=== PATIENT | female | born 1940 | race Caucasian/White ===

== ENCOUNTER → 2016-12-12 | Outpatient (CLI) | payer MEDICARE, BC ==
[2016-01-27 09:21] VITALS: BP 114/66
[~2016-12-12] MED LIST: ACET325T16 PO; ASPI325T11 PO; ASPI81TA2 PO; ATOR10TA60 PO; CALC500T27 PO; ERGO500012 PO; FAMO20TA5 PO; FURO20TA3 PO; HYDR-2666 PO; LISI2.5T PO; METO25TA4 PO; PANT40TA5 PO; POLY17PO5 PO; POTA10TA12 PO
--- NOTE | 2016-12-12 11:13 | CARD ---
APPROVED REPORT EXAM: Two-dimensional and M-mode echocardiogram with Doppler and color Doppler. Other Information Quality : GoodHR: 68bpm Rhythm : NSR INDICATION Cardiac Disease: CAD RISK FACTORS Hypertension 2D DIMENSIONS RVDd2.6 (2.9-3.5cm)Left Atrium(2D)3.1 (1.6-4.0cm) IVSd1.0 (0.7-1.1cm)Aortic Root(2D)2.2 (2.0-3.7cm) LVDd4.3 (3.9-5.9cm)LVOT Diameter2.0 (1.8-2.4cm) PWd0.9 (0.7-1.1cm)LVDs2.9 (2.5-4.0cm) FS (%) 33.1 %SV50.4 ml Aortic Valve AoV Peak Peter.139.3cm/sAoV VTI29.9cm AO Peak GR.7.8mmHgLVOT Peak Peter.85.1cm/s LVOT VTI 21.83cmAO Mean GR.4mmHg VI (VMAX)1.82tc8BHO (VTI)2.35cm2 Mitral Valve MV E Jbofajcl361.6cm/sMV DECEL EDEC620nf MV A Pmedximg564.9cm/sMV E Mean Gr.2mmHg MV SPL88ueF/A Ratio0.9 MV A Srhtqrgb820qrGXX (PHT)3.33cm2 TDI E/Lateral E'13.3E/Medial E'16.9 Pulmonary Valve PV Peak Cppmqycr78.0cm/sPV Peak Grad.4mmHg Tricuspid Valve TR P. Fxfuzlhh568bw/sRAP IXKSTSNY7hzFk TR Peak Gr.45jtVpTHXR50xzGz Pulmonary Vein S1 Zqrsdjus90.4cm/sD2 Ttnfenrh93.4cm/s PVa hwlhndpg129ozgu LEFT VENTRICLE The left ventricle is normal size. There is borderline concentric left ventricular hypertrophy. The l eft ventricular systolic function is normal and the ejection fraction is within normal range. Left ve ntricular ejection fraction is 55-60% There is normal LV segmental wall motion. Transmitral Doppler f low pattern is Grade I-abnormal relaxation pattern. RIGHT VENTRICLE The right ventricle is normal size. There is normal right ventricular wall thickness. The right ventr icular systolic function is normal. ATRIA The left atrium size is normal. The right atrium size is normal. The interatrial septum is intact wit h no evidence for an atrial septal defect or patent foramen ovale as noted on 2-D or Doppler imaging. AORTIC VALVE The aortic valve is mildly sclerotic. Doppler and Color Flow revealed no significant aortic regurgita tion. There is no significant aortic valvular stenosis. MITRAL VALVE Mitral annular calcification is mild. The mitral valve leaflets are thickened. There is no evidence o f mitral valve prolapse. There is no mitral valve stenosis. Doppler and Color Flow revealed trace donaldo ral regurgitation. TRICUSPID VALVE The tricuspid valve is normal in structure and function. Doppler and Color Flow revealed mild tricusp id regurgitation. The pulmonary artery systolic pressure is estimated at 24 mmHg. PULMONIC VALVE The pulmonic valve is not well visualized. Doppler and Color Flow revealed no pulmonic valvular regur gitation. GREAT VESSELS The aortic root is normal in size. The ascending aorta is normal in size. The pulmonary artery is nor mal. The IVC is normal in size and collapses >50% with inspiration. PERICARDIAL EFFUSION There is no evidence of significant pericardial effusion. Critical Notification Critical Value: No <Conclusion> The left ventricle is normal size. The left ventricular systolic function is normal and the ejection fraction is within normal range. Left ventricular ejection fraction is 55-60% There is borderline concentric left ventricular hypertrophy. There is no significant aortic valvular stenosis. Doppler and Color Flow revealed no significant aortic regurgitation. Doppler and Color Flow revealed trace mitral regurgitation. Doppler and Color Flow revealed mild tricuspid regurgitation. The pulmonary artery systolic pressure is estimated at 24 mmHg.
== END | disposition home or self-care (01) ==
LOC: ECHO 07:53
PROVIDERS: ATTEND Internal Medicine Cardiovascular Disease
DX: I25.10 Atherosclerotic heart disease of native coronary artery without angina pectoris (principal); I51.7 Cardiomegaly; I34.0 Nonrheumatic mitral (valve) insufficiency; I07.1 Rheumatic tricuspid insufficiency; I34.8 Other nonrheumatic mitral valve disorders
CPT/HCPCS: 93306

== ENCOUNTER → 2017-03-25 | Outpatient (CLI) | payer MEDICARE, OTHER ==
[2016-01-27 09:21] VITALS: BP 114/66
[~2017-03-25] MED LIST changes: +POLY17PO29 PO; -POLY17PO5 PO
--- NOTE | 2017-03-25 12:36 | KCIC ---
PROCEDURE CT temporal bones without contrast. 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 TECHNIQUE Axial images and coronal reformats are provided. Large qcalj-xm-higt imaging to include the sinuses was provided. One or more of the following individualized dose reduction techniques were utilized for this exam: 1. Automated exposure control. 2. Adjustment of the mA and/or kV according to patient's size. 3. Use of iterative reconstruction technique. COMPARISON None. FINDINGS There is no right middle ear opacity. There is normal alignment of the ossicles without erosive change. Cochlea, vestibule, and semicircular canals are within normal limits. Mastoid air cells are clear. External auditory canal is within normal limits. There is no left middle ear opacity. There is no erosive change involving the ossicles which demonstrate normal positioning. The cochlea, vestibule, and semicircular canals are within normal limits. Mastoid air cells are clear. External auditory canal is within normal limits. The included paranasal sinuses are clear. IMPRESSION Normal CT temporal bones. Electronically signed by: Rafael Deutsch MD (March 25, 2017 12:35:12)
== END | disposition home or self-care (01) ==
LOC: KCIC CT 10:12
PROVIDERS: ATTEND Otolaryngology
DX: H90.71 Mixed conductive and sensorineural hearing loss, unilateral, right ear, with unrestricted hearing on the contralateral side (principal)
CPT/HCPCS: 70480

== ENCOUNTER → 2017-12-04 | Outpatient (CLI) | payer MEDICARE, OTHER | END | disposition home or self-care (01) | LOC: ECHO 08:58 | DX: I08.1 Rheumatic disorders of both mitral and tricuspid valves (principal); I25.10 Atherosclerotic heart disease of native coronary artery without angina pectoris | CPT/HCPCS: 93306 ==

== ENCOUNTER → 2021-04-13 | Outpatient (CLI) | payer MEDICARE, OTHER ==
[2016-01-27 09:21] VITALS: BP 114/66
[~2021-04-13] MED LIST changes: +ACET-2061 PO; -ACET325T16 PO; +ASPI-630 PO; -ASPI81TA2 PO; -CALC500T27 PO; +CALC500T30 PO; -ERGO500012 PO; +ERGO500027 PO; -HYDR-2666 PO; +HYDR-2761 PO; -PANT40TA5 PO; +PANT40TA77 PO
--- NOTE | 2021-04-13 17:01 | CARD ---
MR#: [id number] Date of Study: 04/13/2021 Ordering Physician: FANI MEDELLIN, Referring Physician: Sai [place]: Laura Bustos [facility] APPROVED REPORT EXAM: Two-dimensional and M-mode echocardiogram with Doppler and color Doppler. Other Information Quality : AverageHR: 68bpm Rhythm : NSR INDICATION Cardiac Disease: CAD 2D DIMENSIONS RVDd1.9 (2.9-3.5cm)Left Atrium(2D)3.6 (1.6-4.0cm) IVSd1.0 (0.7-1.1cm)Aortic Root(2D)2.2 (2.0-3.7cm) LVDd4.4 (3.9-5.9cm)LVOT Diameter1.7 (1.8-2.4cm) PWd1.1 (0.7-1.1cm)LVDs2.8 (2.5-4.0cm) FS (%) 37.1 %SV58.2 ml LVEF(%)67.3 (>50%) Aortic Valve AoV Peak Peter.146.5cm/Yordan Peak GR.8.6mmHg LVOT Peak Peter.97.1cm/sAVA (VMAX)1.44cm2 Mitral Valve MV E Arjchlky036.9cm/sMV DECEL AYJT843ws MV A Canlhbwc708.3cm/sE/A Ratio1.0 Pulmonary Valve PV Peak Vbpoacei077.4cm/s Tricuspid Valve TR P. Gfxspxao669jp/sRAP FODHPMIC5asPg TR Peak Gr.55wcDvIOCU38jgMv Pulmonary Vein S1 Bpbyuzsg22.3cm/sD2 Kyiunfxc26.6cm/s PVa sclnfpsb547mknh LEFT VENTRICLE The left ventricle is normal size. There is normal left ventricular wall thickness. The left ventricu lar systolic function is normal. The ejection fraction is 60-65%. There is normal LV segmental wall m otion. Transmitral Doppler flow pattern is Grade II-pseudonormal filling dynamics. No left ventricle thrombus noted on this study. There is no ventricular septal defect visualized. There is no left vent ricular aneurysm. There is no mass noted in the left ventricle. RIGHT VENTRICLE The right ventricle is normal size. There is normal right ventricular wall thickness. The right ventr icular systolic function is normal. ATRIA The left atrium size is normal. The right atrium size is normal. The interatrial septum is intact wit h no evidence for an atrial septal defect or patent foramen ovale as noted on 2-D or Doppler imaging. AORTIC VALVE The aortic valve is normal in structure and function. No aortic regurgitation is present. There is no aortic valvular stenosis. There is no aortic valvular vegetation. MITRAL VALVE Mitral annular calcification. There is no evidence of mitral valve prolapse. There is no mitral valve stenosis. Doppler and Color Flow revealed mild mitral regurgitation. TRICUSPID VALVE The tricuspid valve is normal in structure and function. Doppler and Color Flow revealed mild tricusp id regurgitation. The pulmonary artery systolic pressure is estimated at 42 mmHg. There is mild to mo derate pulmonary hypertension. There is no tricuspid valve prolapse or vegetation. There is no tricus pid valve stenosis. PULMONIC VALVE The pulmonary valve is normal in structure and function. There is no pulmonic valvular regurgitation. There is no pulmonic valvular stenosis. GREAT VESSELS The aortic root is normal in size. The ascending aorta is normal in size. The pulmonary artery is nor mal. Normal left lower pulmonary vein. The IVC is normal in size and collapses >50% with inspiration. PERICARDIAL EFFUSION There is no pleural effusion. There is no evidence of significant pericardial effusion. Critical Notification Critical Value: No <Conclusion> The left ventricular systolic function is normal. The ejection fraction is 60-65%. There is normal LV segmental wall motion. Transmitral Doppler flow pattern is Grade II-pseudonormal filling dynamics. Mild mitral regurgitation. Mild tricuspid regurgitation. The pulmonary artery systolic pressure is estimated at 42 mmHg. There is no evidence of significant pericardial effusion. Signed by : Fani Medellin, Electronically Approved : 04/13/2021 17:00:40
== END ==
LOC: ECHO 14:49
PROVIDERS: ATTEND Internal Medicine Cardiovascular Disease
DX: I08.1 Rheumatic disorders of both mitral and tricuspid valves (principal); I25.10 Atherosclerotic heart disease of native coronary artery without angina pectoris
CPT/HCPCS: 93306

== ENCOUNTER → 2021-06-02 | Outpatient (CLI) | payer MEDICARE, OTHER ==
[2016-01-27 09:21] VITALS: BP 114/66
[~2021-06-02] MED LIST changes: -LISI2.5T PO; +LISI2.5T12 PO; +POTA-116 PO; -POTA10TA12 PO
--- NOTE | 2021-06-02 18:17 | RAD ---
MR#: [id number] Date of Study: 06/02/2021 Ordering Physician: FANI KONG, Referring Physician: FANI KOGN, Tech: Harshad Chase MBA, RDMS, RVT, RDCS, RTR APPROVED REPORT Patient Location: OUT-PATIENT Indications Claudication:Bilaterally VELOCITY AND DOPPLER WAVEFORM ANALYSIS RIGHT cm/secWaveformSeverity LEFT cm/secWaveform Severity dCFA 67.0MonophasicdCFA 98.0Monophasic Prof Fem Art. 54.0MonophasicProf Fem Art. 54.0Monophasic Fem Art Prox. 69.0MonophasicFem Art Prox. 106.0Monophasic Fem Art Mid. 58.0MonophasicFem Art Mid. 105.0Monophasic Fem Art Dist. 65.0MonophasicFem Art Dist. 102.0Monophasic Pop Art(Fossa) 46.0MonophasicPop Art(AK) 38.0Monophasic UTILITIES GROUND WORKER Prox. 16.0MonophasicPTA Prox. 35.0Monophasic UTILITIES GROUND WORKER Dist. 17.0MonophasicPTA Dist. 37.0Monophasic Per Art Mid. Per Art Mid. 16.0Monophasic KIANA Prox. 28.0MonophasicATA Prox. 56.0Monophasic DPA 28MonophasicDPA 25Monophasic Findings Grayscale images of the bilateral lower extremity arterial vessels demonstrates mild diffuse atherosc lerotic plaque. On the right side waveforms are monophasic suggestive of more inflow disease. Overall no critical st enosis is noted from the common femoral artery to the popliteal segment. Below the knee the posterio r tibial artery and the peroneal artery are likely occluded. There is likely diffuse disease involvi ng the anterior tibial artery with one-vessel runoff. On the left side stability there are no high-grade focal stenoses from the common femoral artery to t he distal superficial segment although there again monophasic waveforms suggestive of iliac disease. The posterior tibial artery appears to be patent with likely occlusion of the peroneal artery. The anterior tibial artery also appears to be patent Critical Notification Critical Value: No <Conclusion> 1. Velocity criteria consistent with aortoiliac inflow disease due to monophasic waveforms in the bi lateral lower extremities, consider clinical correlation and/or KWABENA 2. Probable bilateral severe below-knee disease with one-vessel runoff on the right side and two-ves javier runoff on the left side. Signed by : Sonny Boo, Electronically Approved : 06/02/2021 18:16:46
--- NOTE | 2021-06-02 18:19 | RAD ---
MR#: [id number] Date of Study: 06/02/2021 Ordering Physician: FANI KONG, Referring Physician: FANI KONG, Tech: Harshad Chase MBA, RDMS, RVT, RDCS, RTR APPROVED REPORT Patient Location: OUT-PATIENT Laterality:Bilateral Indications CAROTID STENOSIS Doppler Spectral Velocity Analysis Right Left pCCA 89/10 cm/spCCA 92/17 cm/s mCCA 99/11 cm/smCCA 136/20 cm/s dCCA 94/12 cm/sdCCA 126/17 cm/s Bulb Bulb 139/25 cm/s ECA 177/ cm/sECA 250/ cm/s pICA 157/19 cm/spICA 573/69 cm/s Mitul 331/47 cm/smICA 201/19 cm/s dICA 262/23 cm/sdICA 224/25 cm/s Vert. 13/ cm/sVert. 54/ cm/s Subcl. 190/ cm/sSubcl. 168/ cm/s ICA/CCA 3.34ICA/CCA 6.23 Findings Bilateral grayscale images of the carotid vessels demonstrate severe diffuse atherosclerotic plaque l ocalized mostly to the carotid bifurcations. On the right side there is likely a greater than 70% stenosis involving the mid internal carotid francesca ry with an ICA to CCA ratio of 3.3. The vertebral velocities are antegrade. On the left side there is likely a greater than 90% stenosis involving the proximal internal carotid artery with elevated ICA to CCA ratios of 6.5. The vertebral velocities are antegrade. Critical Notification Critical Value: No <Conclusion> 1. Bilateral greater than 70% stenoses involving the cardiovasculature. Consider CT angiography of the head and neck for further delineation of carotid vascular disease. Signed by : Sonny Boo, Electronically Approved : 06/02/2021 18:18:56
== END ==
LOC: US 12:21
PROVIDERS: ATTEND Internal Medicine Cardiovascular Disease
DX: I65.23 Occlusion and stenosis of bilateral carotid arteries (principal); I73.9 Peripheral vascular disease, unspecified; I99.8 Other disorder of circulatory system
CPT/HCPCS: 93880; 93925

== ENCOUNTER 2021-08-29 06:57 | Outpatient (CLI) | payer MEDICARE, OTHER ==
[~2021-08-29] VITALS: Ht 149.9 cm; Wt 60.0 kg
[2021-08-29] VITALS (11 sets, daily range): BP systolic 83–194; BP diastolic 41–72
[2021-08-29] MEDS ORDERED: LIDOCAINE 1% Multi-Dose 20 ML VIAL. ONE (07:38)
[2021-08-29] MEDS ORDERED: IODIXANOL 320 MG/ML 100 ML VIAL. ONE (07:38)
[2021-08-29 08:04] LABS: HEMATOCRIT 27.9 % (36.0-47.0); HEMOGLOBIN 9.1 g/dL (12.0-15.5); RED BLOOD COUNT 2.71 x10^6/uL (3.50-5.40); RED CELL DISTRIBUTION WIDTH 20.1 % (11.5-14.5); WHITE BLOOD COUNT 4.2 x10^3/uL (4.0-11.0)
--- NOTE | 2021-08-29 08:06 | NUR ---
RN notified Dr. Medellin of patient's SOA. Patient and son state that this has been going on for ~1 week. SpO2 90-92% on RA. Lungs are clear, but tight. Patient is very SOA when moving or laying flat. Patient states she has not had daily dose of Lasix x2 weeks. 2L NC applied, SpO2 now 99-100%. Order received to give 40mg IV Lasix x1. Patient's son notified that procedure will be postponed until medication administered and patient has improved.
[2021-08-29] MEDS ORDERED: FUROSEMIDE 40 MG/4 ML VIAL. ONE (08:09)
[2021-08-29 08:12] LABS: CALCIUM 8.5 mg/dL (8.5-10.1); GFR 53.1; POTASSIUM 4.5 mmol/L (3.5-5.1)
[2021-08-29] MEDS ORDERED: FUROSEMIDE 40 MG/4 ML VIAL. IVP ONE (08:15)
[2021-08-29 08:17] LABS: PROTHROMBIN TIME PATIENT 14.3 SEC (11.7-14.0)
[2021-08-29] MEDS ORDERED: BIVALIRUDIN 250 MG VIAL. IV ONE ×2 (09:38→10:00)
[2021-08-29] MEDS ORDERED: VERAPAMIL 5 MG/2 ML VIAL. ONE ×2 (09:57→10:00)
[2021-08-29] MEDS ORDERED: HEPARIN for IV BOLUS 10,000 UNIT/10 ML VIAL. ONE (09:57)
[2021-08-29] MEDS ORDERED: fentaNYL PF VIAL 100 MCG/2 ML VIAL ONE (09:57)
[2021-08-29] MEDS ORDERED: MIDAZOLAM HCL/PF 2 MG/2 ML VIAL. ONE (09:57)
[2021-08-29] MEDS ORDERED: NITROGLYCERIN 200 MCG/2 ML SYRINGE FOR CATH/VASC LAB. ONE (09:58)
[2021-08-29] MEDS ORDERED: LIDOCAINE 1% Multi-Dose 20 ML VIAL. INJ ONE (11:45)
[2021-08-29] MEDS ORDERED: IODIXANOL 320 MG/ML 100 ML VIAL. IART ONE (11:45)
[2021-08-29] MEDS ORDERED: fentaNYL PF VIAL 100 MCG/2 ML VIAL IV ONE (11:45)
[2021-08-29] MEDS ORDERED: MIDAZOLAM HCL/PF 2 MG/2 ML VIAL. IV ONE (11:45)
--- NOTE | 2021-08-29 12:46 | CARD ---
MR#: [id number] Date of Study: 08/29/2021 Ordering Physician: FANI MEDELLIN, Referring Physician: FANI MEDELLIN Tech: RT Rui(R) APPROVED REPORT Patient StatusOUT-PATIENT Science Intern: Sonia Ocampo RT(R) Procedure(s) performed: 1. Angiography, unilateral, left lower extremity 2. Vascular ultrasound for arterial access flouro time: 4.9 minutes dose: 2 Gycm2 contrast: 15 Visipaque moderate sedation: 82 minutes INDICATION FOR PROCEDURE The indication(s) include : Peripheral artery disease with claudication. PROCEDURE NARRATIVE After explaining the risk, benefits and alternative options, informed consent was obtained from patie nt. Patient was brought to the cardiac Electrical Appliance Repairer and her right wrist was prepped and draped in the us ual fashion after confirming a positive modified Herminio's test. Several attempts to obtain arterial a ccess in the right radial artery were unsuccessful due to very small caliber vessel. Vascular ultras ound confirmed a small caliber vessel very distally with probably more proximal occlusion. Both groi ns were prepped and draped in the usual fashion. Arterial access was obtained in the right common fe moral artery but several attempts to advance guidewire across the right common iliac artery were unsu ccessful probably due to chronic occlusion. Subsequently, arterial access was obtained the left comm on femoral artery under vascular ultrasound guidance but again several attempts to advance guidewire across the left common iliac artery were unsuccessful. A 5 Croatian dilator was advanced over the wire and with the tip positioned in the left external iliac artery, contrast injections were performed co nfirming chronic total occlusion involving the left common iliac artery. Left external iliac and com mon femoral arteries were patent. Several attempts to advance a 0.035 inch Glidewire across the chronic specialist francois occlusion were unsuccessful. Patient's left radial pulse was not palpable. The procedure was st opped due to lack of any vascular access with plans for CT angiography and possible vascular surgery referral. Conclusion Severe bilateral lower extremity peripheral artery disease with chronic total occlusions involving bi lateral common iliac arteries Recommendations CT angiography of bilateral lower extremities and vascular surgery referral. Signed by : Fani Medellin, Electronically Approved : 08/29/2021 12:46:14
--- NOTE | 2021-08-29 14:40 | NUR ---
pt discharged to home family. discharge instructions reviewed with patient and family. Pt ambulated and tolerated PO.
== END 2021-08-29 14:43 | disposition home or self-care (01) ==
LOC: CCL 06:57
PROVIDERS: ATTEND Internal Medicine Cardiovascular Disease
DX: I73.9 Peripheral vascular disease, unspecified (principal); I25.10 Atherosclerotic heart disease of native coronary artery without angina pectoris; K21.9 Gastro-esophageal reflux disease without esophagitis; Z79.82 Long term (current) use of aspirin; Z79.899 Other long term (current) drug therapy; Z98.890 Other specified postprocedural states; Z87.891 Personal history of nicotine dependence; Z20.822 Contact with and (suspected) exposure to COVID-19
CPT/HCPCS: 36245; 36415; 75710; 76937; 80048; 85027; 85610; 87426; 99152; 99153; C1769; C1894; J0583; J1644; J1940; J2250; J3010; J3490; Q9967

== ENCOUNTER → 2021-09-25 | Outpatient (CLI) | payer MEDICARE, OTHER ==
[2021-08-29 14:20] VITALS: BP 152/54
[~2021-09-25] MED LIST changes: +IOHEXOL 300 MG/ML 100ML VIAL. IV ONE
--- NOTE | 2021-09-25 11:52 | RAD ---
Exam: CTA NECK Date: 09/25/2021 9:54 AM Indication: CAD Comparison: 01/13/2016 Technique: CT angiogram of neck was obtained with bolus injection of 60 mL of Omnipaque 300. The images were se nt to workstation and multiplanar reconstructions were obtained. Multiplanar reconstruction images t o include MIP and 3-D reconstruction images are submitted. One or more of the following dose reducti on techniques were utilized: Automated exposure control (AEC), Adjustment of mA and/or kV according t o patient size, Use of iterative reconstruction technique such as ASiR, CT scan done according to ALA RA and image gently/image wisely Findings: Right carotid: The right proximal to mid common carotid artery is patent and normal caliber. Distal C CA, carotid bifurcation, and proximal ICA are nondiagnostic due to motion artifact. Distal ICA is pat ent. The right external carotid artery is patent. Left carotid: The left proximal to mid common carotid artery is patent and normal caliber. Distal CCA , carotid bifurcation, and proximal ICA are nondiagnostic due to motion artifact. Distal ICA is paten t. The left external carotid artery is patent. Right vertebral: The right vertebral artery is patent and normal caliber proximally and distally. Mid vertebral artery is obscured by motion artifact. Left vertebral: The left vertebral artery is patent and normal caliber proximally and distally. Mild vertebral artery is obscured by motion artifact. Atherosclerosis of the aortic arch. The origins of the brachiocephalic and subclavian arteries are no rmal. No cervical lymphadenopathy. The thyroid gland is normal. The parotid and submandibular glands are no rmal. The visualized aerodigestive tract is unremarkable. Degenerative cervical spondylosis, incompletely characterize due to motion artifact. Centrilobular emphysema. Impression: 1. Nondiagnostic evaluation of the distal CCAs, carotid bifurcations, and proximal ICAs due to motion artifact. Distal ICAs are patent and normal caliber. 2. Proximal and distal vertebral arteries are patent. Mid vertebral arteries are nondiagnostic. PQRS Compliance Statement - Stenosis calculations for CT, MR and conventional angiography are based u benja measurement of the distal ICA diameter in accordance with the NASCET methodology. Electronically signed by: Zachary Bryan MD (09/25/2021 11:49 AM) [facility]
== END ==
LOC: CT 09:52
PROVIDERS: ATTEND Internal Medicine Cardiovascular Disease
DX: I65.29 Occlusion and stenosis of unspecified carotid artery (principal); I70.0 Atherosclerosis of aorta; J43.2 Centrilobular emphysema; M47.812 Spondylosis without myelopathy or radiculopathy, cervical region
CPT/HCPCS: 70498; Q9967